=== PATIENT | female | born 1960 | race Caucasian/White ===

== ENCOUNTER 2019-01-19 09:55 | Emergency (ER) | payer OTHER ==
[~2019-01-19] VITALS: Ht 165.1 cm; Wt 81.6 kg
[~2019-01-19 09:55] MED LIST: AMBIEN PAK10 MG; BENICAR HCT 20-1 TA1
[2019-01-19] MEDS ORDERED: ATACAND32 MG (10:25)
[2019-01-19] MEDS ORDERED: TOPROL XL50 MG (10:25)
[2019-01-19] MEDS ORDERED: ASA-EC81 MG (10:25)
[2019-01-19] MEDS ORDERED: SYNTHROID50 MCG (10:26)
[2019-01-19] MEDS ORDERED: CLONAZEPAM0.25 MG (10:27)
== END 2019-01-19 11:56 | disposition home or self-care (01) ==
LOC: ER 09:55
DX: M54.5 Low back pain (principal)